=== PATIENT | male | born 1955 | race Caucasian/White ===

== ENCOUNTER → 2022-04-24 | Outpatient (CLI) | payer OTHER ==
--- NOTE | 2022-04-24 15:21 | DIREP ---
PROCEDURE:XRAY WRIST MIN 3VW-RT COMPARISON:None. INDICATIONS:Z00.00 HISTORY AND PHYSICAL EVALUATION FINDINGS: BONES:Chronic fracture remodeling of the scaphoid with proximal migration of the capitate compatible with SNAC wrist. 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 SOFT TISSUES:Normal. OTHER:No additional findings. CONCLUSION:Findings compatible with SNAC wrist Dictated by: Kenan Scruggs DO on 04/24/2022 at 03:18 PM
== END | disposition home or self-care (01) ==
LOC: RAD 11:44
PROVIDERS: ATTEND Registered Nurse
DX: S62.031A Displaced fracture of proximal third of navicular [scaphoid] bone of right wrist, initial encounter for closed fracture (principal); M19.031 Primary osteoarthritis, right wrist; Z00.00 Encounter for general adult medical examination without abnormal findings; X58.XXXA Exposure to other specified factors, initial encounter; Y93.89 Activity, other specified; Y92.89 Other specified places as the place of occurrence of the external cause; Y99.8 Other external cause status
CPT/HCPCS: 73110-RT